=== PATIENT | male | born 1980 | race Caucasian/White ===

== ENCOUNTER 2019-11-20 10:49 | Emergency (ER) | payer MEDICAID, SELFPAY ==
[2019-11-20] VITALS (19 sets, daily range): BP systolic 114–150; BP diastolic 73–99; PULSE 47–90; RESP 11–31; TEMP 36; O2SAT 95–100
--- NOTE | 2019-11-20 10:45 | DI.CT_ITS ---
EXAM: CT ABDOMEN PELVIS W CLINICAL HISTORY: LLQ abd pain, vomiting. TECHNIQUE: Imaging Protocol: Axial computed tomography images with coronal and sagittal reformatted images were created and reviewed CONTRAST MATERIAL: Intravenous: Omnipaque 350 Contrast volume:100 cc Oral: / no COMPARISON: CT ABD PELVIS WITH CONTRAST from 03/24/2015 FINDINGS: ABDOMEN: Lung Bases: Normal where visualized. Liver: Normal density. A low-density lesion is again noted in the posterior right lobe of the liver, consistent with a hemangioma. Gallbladder and biliary tract: No radiodense calculus or dilation. Pancreas: Normal density, no abnormal calcifications or inflammatory process. Spleen: Normal. Kidneys: Normal size, contour and axis. There is a 6 millimeter stone in the upper left ureter causi ng mild to moderate left hydronephrosis. There is mild delay in the left nephrogram. No additional urinary tract calculi are seen. The right kidney is unremarkable. No masses seen. Adrenal glands: No masses seen. Abdominal Aorta: Abdominal portion non-dilated. PELVIS: Bladder: Symmetric distention, no gross wall thickening. Bowel: No obstruction or bowel wall thickening. Status post appendectomy. Peritoneal cavity: No ascites, collection or mesenteric inflammatory response. Bones: Within normal limits. Reproductive organs: Within normal limits. Lymph nodes: Unremarkable. Impression: 6 millimeter stone in the upper left ureter causing mild to moderate hydronephrosis. RADIATION DOSE DELIVERED: Total DLP DATA REPOSITORY: All CT scans at this facility are submitted to the National Radiology Data Registry (NRDR) Dose Index Registry (DIR) with the [employer] (ACR). RADIATION OPTIMIZATION: All CT scans at this facility use at least one of these dose optimization te chniques: automated exposure control; mA and/or kV adjustment per patient size (includes targeted exa ms where dose is matched to clinical indication); or iterative reconstruction.
--- NOTE | 2019-11-20 10:58 | ED.GENADUL_ITS ---
Discharge Plan Disposition Patient Disposition: HOME Condition: Stable Discharge Details Clinical Impression: Left ureteral calculus Primary Care Provider: [facility] ED Provider: Abeba Mart Home Meds and New Rx's Prescriptions: New tamsulosin 0.4 mg capsule 0.4 mg PO DAILY 7 Days Qty: 7 RF: 0 ibuprofen 800 mg tablet 800 mg PO Q8H PRN (Reason: pain) Qty: 14 RF: 0 ondansetron HCl [Zofran] 4 mg tablet 4 mg PO Q8H PRN (Reason: nausea and vomiting) Qty: 14 RF: 0 Continued bupropion HCl [Wellbutrin XL] 150 mg Tablet Extended Release 24 Hr 150 mg PO QAM RF: 0 Discharge Instructions Instructions: Kidney Stones (ED), How to Strain Your Urine (ED), Flank Pain (ED) Additional Instructions: Follow up with primary care provider in 3-5 days. Return to ED sooner if any worsening or concerns. Increase oral fluids. Please take Tylenol or Ibuprofen with food every 4-6 hours as needed for pain and swelling. Take medications as prescribed. Follow-up with urology in 3 to 5 days as previously discussed. Referrals: Casper Caceres MD [ [facility] STAFF PHYSICIAN] - Discharge Data Discharge Date/Time-TO BE ENTERED AT DEPARTURE: 11/20/19 13:10 Medical Decision Making Patient is declining opioids at this time and is requesting Toradol. Will hold off until CT results. Differential diagnosis includes but not limited to kidney stone, diverticulitis, bowel obstruction, EXAM: CT ABDOMEN PELVIS W CLINICAL HISTORY: LLQ abd pain, vomiting. TECHNIQUE: Imaging Protocol: Axial computed tomography images with coronal and sagittal reformatted images were created and reviewed CONTRAST MATERIAL: Intravenous: Omnipaque 350 Contrast volume:100 cc Oral: / no COMPARISON: CT ABD PELVIS WITH CONTRAST from 03/24/2015 FINDINGS: ABDOMEN: Lung Bases: Normal where visualized. Liver: Normal density. A low-density lesion is again noted in the posterior right lobe of the liver, consistent with a hemangioma. Gallbladder and biliary tract: No radiodense calculus or dilation. Pancreas: Normal density, no abnormal calcifications or inflammatory process. Spleen: Normal. Kidneys: Normal size, contour and axis. There is a 6 millimeter stone in the upper left ureter causing mild to moderate left hydronephrosis. There is mild delay in the left nephrogram. No additional urinary tract calculi are seen. The right kidney is unremarkable. No masses seen. Adrenal glands: No masses seen. Abdominal Aorta: Abdominal portion non-dilated. PELVIS: Bladder: Symmetric distention, no gross wall thickening. Bowel: No obstruction or bowel wall thickening. Status post appendectomy. Peritoneal cavity: No ascites, collection or mesenteric inflammatory response. Bones: Within normal limits. Reproductive organs: Within normal limits. Lymph nodes: Unremarkable. Impression: 6 millimeter stone in the upper left ureter causing mild to moderate hydronephrosis. 1206: Spoke with Dr. Caceres with Urology, discussed patient case in details, verbalized understanding. He does recommend Flomax and follow-up with urology clinic. Urinalysis shows no signs of urinary tract infection, no leukocytes no nitrites. Is positive for moderate blood 10-20 RBCs. Discussed taking Tylenol or ibuprofen for pain given Zofran for nausea. Also prescribed Flomax 0.4 mg daily x7 days. Patient remained hemodynamically stable throughout stay discuss strict return instructions, verbalized understanding. This text was generated using [employer] system, please disregard any oddities of phrase or misspellings. HPI General Mode of arrival: wheelchair . Date/Time Provider Initiated Documentation: 11/20/19 10:51 . Limitations to Documentation: no limitations . Information obtained by: patient . HPI Narrative: 39-year-old male presents to the ER with sharp constant left lower quadrant abdominal pain which began at 8 this morning. It is moderate to severe and associated with vomiting. He denies any radiation of pain. Denies any dysuria or trouble urinating no testicle swelling. Only past surgical history includes appendectomy. He denies any diarrhea. He is a non-smoker but does endorse marijuana use. Related Data Home Medications Medication Instructions Recorded Confirmed bupropion HCl [Wellbutrin XL] 150 mg PO QAM 11/20/19 11/20/19 ibuprofen 800 mg PO Q8H PRN #14 tab 11/20/19 ondansetron HCl [Zofran] 4 mg PO Q8H PRN #14 tab 11/20/19 tamsulosin 0.4 mg PO DAILY 7 Days #7 cap 11/20/19 Previous Rx's Medication Instructions Recorded ibuprofen 800 mg PO Q8H PRN #14 tab 11/20/19 ondansetron HCl [Zofran] 4 mg PO Q8H PRN #14 tab 11/20/19 tamsulosin 0.4 mg PO DAILY 7 Days #7 cap 11/20/19 Allergies Allergy/AdvReac Type Severity Reaction Status Date / Time piperacillin Allergy Skin Rash Verified 11/20/19 10:56 General Stated Complaint: Abd Prob SHANTEL: 3 Review of Systems Narrative: Constitutional: Negative for weight loss, alert and oriented, well groomed, normal body habitus, appears uncomfortable and in significant amount of pain. HEENT: Denies trauma, headaches, blurry vision, nasal discharge, sore throat, trouble swallowing. Chest: Denies chest pain, palpitations, irregular rhythm, hypertension. Respiratory: Denies Shortness of breath, cough, hemoptysis. GI: Denies diarrhea, constipation. Positive abdominal pain associated with nausea vomiting. : Denies dysuria, hematuria, flank pain, rectal bleeding. Neuro: Denies dizziness, blurry vision, weakness, syncope, headache or facial numbness. Hematologic: Denies easy bruising, intolerance to heat or cold, hair loss. [facility] Social History Smoking/Tobacco Use Status: Never Alcohol Intake: current Alcohol Intake frequency: a few times a month Drug use: Daily Substance use type: marijuana Do you feel safe at home: Yes Do you feel safe in your relationship?: Yes Exam Narrative Exam Narrative: Constitutional: Alert and oriented x3. Patient is diaphoretic appears stated age. Normal body habitus. Head: Normocephalic, no trauma. Eyes: Pupils PERRLA, Red reflex noted, EOM's intact. Eyelids symmetrical without lesions, discharge, or swelling. ENT: Bilateral TM's WNL, External ear normal to inspection, no mastoid TTP, swelling, or erythema, Nasal turbinates WNL, no nasal discharge. Normal dentition, Posterior pharynx WNL, no exudate. Chest: RRR, Normal S1, S2, distal pulses intact. Resp: Lungs clear to auscultation bilaterally, no wheezes, rales, or rhonchi. Abdomen: Left lower quadrant tender to palpation, soft nondistended. Hypoactive bowel sounds noted all 4 quadrants. Musculoskeletal: Normal gait, 5/5 strength to all four extremities. Skin: No suspicious rashes or lesions. Capillary refill less than 2 sec. Neurologic: Cranial nerves II-XII intact. Alert and oriented x 3. DTR's intact. Hematologic/Lymphatic: No ecchymosis, no lymphadenopathy. Course Vital Signs Vital signs: Vital Signs Temperature 36.0 C L 11/20/19 10:53 Pulse 71 11/20/19 10:53 Respiratory Rate 17 11/20/19 10:53 Blood Pressure 150/93 H 11/20/19 10:53 Pulse Oximetry 100 11/20/19 10:53 Temperature 36.0 C L 11/20/19 10:53 Temperature Source Tympanic 11/20/19 10:53 Pulse 71 11/20/19 10:53 Respiratory Rate 17 11/20/19 10:53 Blood Pressure 150/93 H 11/20/19 10:53 Blood Pressure Position Sitting 11/20/19 10:53 Pulse Oximetry 100 11/20/19 10:53 Oxygen Delivery Method Room Air 11/20/19 10:53 Oxygen Flow Rate 0 11/20/19 10:53
[2019-11-20] MEDS: Normal Saline 1,000 ML 1000 ML IV (11:03)
[2019-11-20] MEDS: Omnipaque 350 MG/ML 100 ML BTL IJ (11:06)
[2019-11-20] MEDS: Ondansetron 4 MG/2 ML VIAL IVP (11:09)
[2019-11-20] MEDS: Normal Saline - Diluent 50 ML VIAL IV (11:11)
[2019-11-20] MEDS: Normal Saline Flush 10 ML SYR IVP (11:13)
[2019-11-20 11:15] LABS: Abs Immature Grans 0.03 10^3/uL (0.0-0.06); Absolute Basophil Count 0.05 10^3/uL (0.0-0.2); Absolute Eosinophil Count 0.04 10^3/uL (0.0-0.7); Absolute Lymphocyte Count 1.85 10^3/uL (1.2-3.4); Absolute Monocyte Count 0.48 10^3/uL (0.1-0.8); Absolute Neutrophil Count 6.12 10^3/uL (1.2-6.7); Basophils % 0.6; Eosinophils % 0.5; HCT 47.2 % (40.0-50.0); HGB 16.3 g/dL (13.5-17.5); Immature Grans % 0.4; Lymphocytes % 21.6; MCH 30.6 pg (27.0-33.0); MCHC 34.5 % (32.0-36.0); MCV 88.6 fL (80-95); MPV 10.8 fL (8.0-11.0); Monocytes % 5.6; Neutrophils % 71.3; Nucleated RBC 0 %; Platelet Count 288 10^3/uL (130-400); RBC 5.33 10^6/uL (4.36-5.78); RDW 11.9 % (11.8-14.1); RDW-SD 38.7 fL; WBC 8.57 10^3/uL (4.4-10.8)
[2019-11-20] MEDS: Ketorolac 30 MG/ML VIAL IVP (11:15)
[2019-11-20 11:23] LABS: ALT 23 U/L (16-63); AST 17 U/L (15-37); Albumin 4.4 g/dL (3.4-5.0); Alkaline Phosphatase 75 U/L (46-116); Anion Gap 10.9 mmol/L (3-11); BUN 11 mg/dL (7-18); CO2 27.1 mmol/L (21.0-32.0); CREATININE 1.38 mg/dL (0.70-1.30); Calcium 9.1 mg/dL (8.5-10.1); Chloride 102 mmol/L (98-107); Estimated GFR 57.07 (mL/min/1.73m2); Glucose 117 mg/dL (74-106); Lipase 78 U/L (73-393); Magnesium 1.9 mg/dL (1.8-2.4); Potassium 3.5 mmol/L (3.5-5.1); Sodium 140 mmol/L (136-145); Total Protein 7.6 g/dL (6.4-8.2)
[2019-11-20] MEDS: ACETAMINOPHEN 1,000 MG/100 ML BTL 400 MG IVPB (11:32)
[2019-11-20] MEDS: Tamsulosin 0.4 MG CAPCR PO (12:14)
[2019-11-20 12:30] LABS: Bilirubin Negative (Negative); Blood Moderate (Negative); Clarity Clear (Clear); Glucose Negative (Negative); Ketones Negative (Negative); Leukocyte Esterase Negative (Negative); Nitrite Negative (Negative); Specific Gravity 1.015 (1.005-1.025); Urobilinogen 0.2 EU/dL (Up TO 0.2); pH 6.5 (5-8)
[2019-11-20 12:43] LABS: Bacteria Rare HPF (Negative); C & S Indicated? No; Casts Negative LPF (Negative); Crystals Negative HPF (Negative); Epithelial Cells Negative HPF (Negative); Mucus Moderate (Negative); Other Cells Negative (Negative); WBC Negative HPF (0-5)
== END 2019-11-20 13:10 | disposition home or self-care (01) ==
PROVIDERS: Emergency Provider Registered Nurse Emergency
DX: N13.2 Hydronephrosis with renal and ureteral calculous obstruction (principal); R11.2 Nausea with vomiting, unspecified
CPT/HCPCS: 36415; 80053; 83690; 96361; 96374; 96375; 99285; 74177; 81003; 81015; 83735; 85025; 99284; J0131; J1885; J2405; J3490

== ENCOUNTER 2020-01-05 09:16 | Outpatient (CLI) | payer MEDICAID, SELFPAY ==
--- NOTE | 2020-01-05 10:15 | DI.RAD_ITS ---
EXAM: XR ABDOMEN FLAT PLATE CLINICAL HISTORY: monitoring left ureteral stone Z87.442 HX URINARY CALCULI TECHNIQUE: COMPARISON: CT CT ABDOMEN PELVIS W from 11/20/2019 FINDINGS: Single view of the abdomen was obtained. There is a 5 millimeter in diameter calculus projected just above the transverse process of L3 on the left, this presumably corresponds to left ureteral calculu s identified on prior CT of November 19. No additional urinary tract calcification identified. No other significant findings. IMPRESSION: 5 millimeter presumed left ureteral calculus, likely no change in position in comparison with CT of November 19. RADIATION DOSE DELIVERED: Total DLP
== END 2020-01-05 09:36 ==
PROVIDERS: Visit Provider Nurse Practitioner Gerontology
DX: N20.1 Calculus of ureter (principal); Z87.442 Personal history of urinary calculi
CPT/HCPCS: 74018

== ENCOUNTER 2020-01-21 07:20 | Outpatient (CLI) | payer MEDICAID, SELFPAY ==
[2020-01-23 10:20] LABS: SARS-CoV-2 RNA Not Detected (NotDetected); SARS-CoV-2 RNA Source Nasal/Nares
== END 2020-01-21 07:40 ==
PROVIDERS: Visit Provider Urology
DX: Z11.59 Encounter for screening for other viral diseases (principal); Z01.818 Encounter for other preprocedural examination
CPT/HCPCS: U0003

== ENCOUNTER 2020-01-25 06:16 | Day surgery (SDC) | payer MEDICAID, SELFPAY ==
[2020-01-25] VITALS (8 sets, daily range): BP systolic 104–146; BP diastolic 69–97; PULSE 60–81; RESP 14–18; TEMP 36–36.4; O2SAT 95–100
[2020-01-25] MEDS: Lactated Ringers 1,000 ML 80 ML IV (06:51)
[2020-01-25] MEDS: CIPROFLOXACIN 400 MG/200 ML BAG 200 MG IVPB (06:51)
--- NOTE | 2020-01-25 06:59 | W.PM.HP.N ---
Date of service: 01/25/20 Time of Service: 07:00 Assessment and Plan Assessment and plan (1) Left ureteral stone: Status: Acute Assessment and plan: We will move ahead with cystoscopy, left retrograde pyelogram, left ureteroscopy and holmium laser lithotripsy of his stone. History of Present Illness History of Present Illness Chief Complaint: Left ureteral stone Narrative: Pepe is a 39-year-old male referred to urology by the emergency room for a left upper ureter 6 mm stone. He was seen in emergency room approximately a month ago. He states that he has not had any discomfort to the left side. He has not passed his stone as far as he is aware. He does note some lower right back pain that he attributes to his work. He has not seen blood in his urine. He has some increased frequency in the past week or two . This is his first known stone. He has no history of gout or parathyroidism. He notes that he has poor water intake. He drinks excessive Pepsi. He has high salt intake along with animal protein. He does not eat shellfish nor any foods high in oxalates. Review of Systems Narrative: No fevers or chills No vision change or dysphasia No diabetes or thyroid No shortness of breath, cough or hemoptysis No chest pain or palpitations No nausea, vomiting, hepatitis, ulcers, jaundice, diarrhea or constipation No seizures, strokes or peripheral neuropathy No bleeding disorders or anemia No gout [facility] Medical History (Updated 01/25/20 @ 07:01 by Casper Caceres MD) Depression Kidney stones Left ureteral stone Surgical History History of appendectomy Social History Smoking/Tobacco Use Status: Never Smoking risk assessment performed?: Yes Alcohol Intake: current Alcohol Intake frequency: a few times a month Drug use: Socially Substance use type: marijuana Do you feel safe at home: Yes Do you feel safe in your relationship?: Yes Meds Home Medications and Allergies Home Medications Medication Instructions Recorded Confirmed Type bupropion HCl [Wellbutrin XL] 150 mg PO QAM 11/20/19 01/25/20 History Allergies Allergy/AdvReac Type Severity Reaction Status Date / Time piperacillin Allergy Skin Rash Verified 11/20/19 10:56 Exam Const General: cooperative, comfortable and no acute distress Neck Neck: supple Resp Effort & Inspection: normal respiratory effort Auscultation: clear to auscultation bilaterally Cardio Rate: regular rate Rhythm: regular rhythm GI Palpation: soft and no masses Skin Other: multiple tattoos Neuro General: patient alert, patient awake and patient oriented x3 Results Last Vital Signs Temp 36.4 C L 01/25/20 06:24 Pulse 63 01/25/20 06:24 Resp 16 01/25/20 06:24 BP 104/69 01/25/20 06:24 Pulse Ox 96 01/25/20 06:24 COVID-19 Screening Have you, or household traveled for leisure in last 14 days?: No Had IN PERSON contact w/suspected or confirmed C-19 person: No
[2020-01-25] MEDS: Lidocaine 2% Jelly 6 ML SYR (07:58)
[2020-01-25] MEDS: Omnipaque 300 MG/ML 50 ML BTL (08:00)
--- NOTE | 2020-01-25 08:29 | W.PM.DSUDISC ---
Discharge Plan Disposition Patient Disposition: HOME Condition: Stable Discharge Details Attending Provider: Casper Caceres [facility] Home Meds and New Rx's Prescriptions: New tramadol 100 mg tablet 100 mg PO Q6H PRN (Reason: pain) Qty: 12 RF: 0 No Action bupropion HCl [Wellbutrin XL] 150 mg Tablet Extended Release 24 Hr 150 mg PO QAM RF: 0 Discharge Instructions Additional Instructions: F/U 2 to 3 days for stent removal - tell my office pt has string on stent F/U appt in 4 to 6 weeks with renal US Activity:: Activity as Tolerated Shower/Bathe:: 24 hours Diet:: As Tolerated Discharge Orders Discharge Orders: Discharge Order (Routine); Ordered 01/25/20 Ordered By: Casper Caceres DS: Diagnosis Discharge Diagnosis (1) Left ureteral stone: Status: Acute
--- NOTE | 2020-01-25 08:36 | W.PM.OP ---
Date of service: 01/25/20 Time of Service: 08:36 Operative Note Operative Note DATE OF PROCEDURE: 01/25/20 PRE-OP DIAGNOSIS: Left ureteral stone POST-OP DIAGNOSIS: same PROCEDURE: Cystoscopy, left retrograde pyelogram, left flexible ureteroscopy, extraction of the left ureteral stone, insert left ureteral stent SURGEON: Casper Caceres ANESTHESIA: GETA ESTIMATED BLOOD LOSS: 17 PATHOLOGY: other (stone for chemical analysis) COMPLICATIONS: None Patient was transported to: PACU Patient's condition: stable Implants: 4.8 [place]e by 22 to 30 cm ureteral stent Indications: This is a 39-year-old gentleman who presented to the emergency room over a month ago with left renal colic. He was found to have a 5 mm left proximal ureteral stone. The stone has not progressed, but he has not been overly symptomatic from it. He presents for stone manipulation Findings: Stone in the left proximal ureter Procedure Description: The patient was brought to the operating room upon 01/25/2020. He was given preoperative antibiotics. After successful induction of general anesthesia, he was placed in the dorsal lithotomy position. Genitalia was prepped and draped sterilely. 2% Xylocaine jelly was instilled into the urethra to act as a local anesthetic. A 22 [place]e rigid cystoscope was passed through the urethra into the bladder. The urethra and bladder were inspected with a 30 degree lens. The pendulous, bulbous and membranous urethra was appeared normal with no strictures. Prostatic urethra appeared normal. The bladder neck was entered the bladder mucosa was inspected. Both ureteral orifice ease were identified. No blood was seen coming from either side. The left ureteral orifice was cannulated with a 6 [place]e access catheter. A left retrograde film was obtained by injecting Omnipaque through the access catheter under fluoroscopic guidance. The distal ureter appeared normal but there was a filling defect in the left proximal ureter consistent with his known kidney stone. He then passed a wire through the access catheter and maneuvered the wire until the tip was in the upper pole calyx. I removed the access catheter and replaced it with a dual-lumen catheter. We then positioned a second wire. One of the wires was chosen as a safety wire and the other was a working wire. The cystoscope was removed and a ureteral access sheath was advanced over the working wire. A flexible ureteroscope was advanced through the access sheath. I was able to see him in area of edema in the proximal ureter where the stone had previously been lodged. The stone had been bumped back up into a midpole calyx. I was able to visualize the stone and grasped it in a ZeroTip stone basket. The stone was not extracted and sent to pathology for chemical analysis. Because of the edema that we visualized, we elected to place a temporary ureteral stent. We chose a 4.8 [place]e variable length stent and advanced it over the safety wire. The proximal end of the stent was curled in the luminal pelvis and the distal end was curled in the bladder. The positioning of the stent was confirmed both fluoroscopically and cystoscopically. The safety string was left in place and brought through the urethra. The string was anchored to the dorsum of the penis with a Steri-Strip. The patient tolerated this procedure well. He was taken to the recovery room in stable condition.
--- NOTE | 2020-01-25 08:40 | DI.RAD_ITS ---
EXAM: XR RETROGRADE IN OR CLINICAL HISTORY: left kidney stone TECHNIQUE: 2D and realtime digital imaging was performed. CONTRAST MATERIAL: Refer to procedure report. COMPARISON: No exams were available for comparison FINDINGS: Fluoroscopy was provided for Dr. Caceres during the performance of a retrograde evaluation of the bruce l collecting system. Please refer to the procedure report for complete details. Fluoro time: 40.4 seconds IMPRESSION: RADIATION DOSE DELIVERED:
[2020-02-09 14:34] LABS: Source: Left Ureter
== END 2020-01-25 10:30 | disposition home or self-care (01) ==
PROVIDERS: Visit Provider Urology
PROC: (CPT 52352; principal; 2020-01-25 07:30)
DX: N20.1 Calculus of ureter (principal)
CPT/HCPCS: 52352; 52332; NC; 74420; 82365; J0744; J1100; J1885; J2250; J2405; Q9967

== ENCOUNTER 2020-03-08 01:37 | Outpatient (CLI) | payer MEDICAID, SELFPAY ==
--- NOTE | 2020-03-08 07:45 | DI.US_ITS ---
EXAM: US RENAL CLINICAL HISTORY: r/o hydronephrosis after ureteroscopy,LT URETERAL STONE,N20.1. TECHNIQUE: Santos scale, color and spectral Doppler were used. COMPARISON: CT CT ABDOMEN PELVIS W from 11/20/[address] ABDOMEN PELVIS W from 11/20/2019 CR XR ABDOMEN FLAT PLATE from 01/05/2020 CR XR ABDOMEN FLAT PLATE from 01/05/2020 FINDINGS: Renal size in cm: Right: 11.4 left: 10.7 Echogenicity: Normal Hydronephrosis: No Cyst or mass: No Nephrolithiasis: No Other findings: None Bladder:Normal no calculi or wall thickening. Prevoid vol: 104 cc Postvoid vol:7 cc Both ureteral jets were visualized. Prostate volume 29 cc. IMPRESSION: Negative renal ultrasound. No evidence of left hydronephrosis. DATA REPOSITORY:
== END 2020-03-08 01:57 ==
PROVIDERS: Visit Provider Urology
DX: N20.1 Calculus of ureter (principal)
CPT/HCPCS: 76770